=== PATIENT | male | born 1970 | race African-American/Black ===

== ENCOUNTER 2020-10-15 16:57 | Emergency (ER) | payer OTHER ==
[~2020-10-15] VITALS: Ht 188 cm; Wt 84.0 kg
[2020-10-15 18:54] LABS: BASO % 0 % (0-3); EOS % 0 % (0-3); HEMATOCRIT 44.9 % (39.0-53.0); HEMOGLOBIN 14.6 g/dL (13.0-17.5); LYMPH # 0.8 x10^3/uL (1.0-4.8); LYMPH % 10 % (24-48); MEAN CORPUSCULAR HEMOGLOBIN 28 pg (25-35); MEAN CORPUSCULAR HGB CONC 32 g/dL (31-37); MEAN CORPUSCULAR VOLUME 87 fL (79-100); MONO # 0.6 x10^3/uL (0.0-1.1); MONO % 8 % (0-9); NEUT # 6.3 x10^3uL (1.8-7.7); NEUT % 82 % (31-73); PLATELET COUNT 357 x10^3/uL (140-400); RED BLOOD COUNT 5.14 x10^6/uL (4.30-5.70); RED CELL DISTRIBUTION WIDTH 13.6 % (11.5-14.5); WHITE BLOOD COUNT 7.6 x10^3/uL (4.0-11.0)
[2020-10-15 18:57] LABS: CALCIUM 10.3 mg/dL (8.5-10.1); CREATININE 1.3 mg/dL (0.7-1.3); GFR 71.3; POTASSIUM 4.3 mmol/L (3.5-5.1)
[2020-10-15 19:10] LABS: ALBUMIN 4.5 g/dL (3.4-5.0); ALBUMIN/GLOBULIN RATIO 1.1 (1.0-1.7); MAGNESIUM 2.1 mg/dL (1.8-2.4); TOTAL BILIRUBIN 0.7 mg/dL (0.2-1.0); TOTAL PROTEIN 8.6 g/dL (6.4-8.2)
--- NOTE | 2020-10-15 19:20 | RAD ---
XR CHEST 1V Clinical History: Reason: tachycardia / Spl. Instructions: / History: Technique: AP view of the chest was obtained at 10/15/2020 6:49 PM. Comparison: None. Findings: The cardiomediastinal silhouette is normal. The pulmonary vasculature is normal. The lungs and pleura l margins are clear. Impression: No evidence of an acute cardiopulmonary process. Electronically signed by: Andrei Reardon III, MD (10/15/2020 7:18 PM) [facility] [place]
[2020-10-15] MEDS ORDERED: IV RINGERS SOLUTION,LACTATED 1,000 ML IV ONE (19:45)
--- NOTE | 2020-10-15 20:26 | PHYS DOC ---
Past History Past Medical History: High Cholesterol, Hypertension Alcohol Use: None Adult General Chief Complaint Chief Complaint: DIZZY/LIGHT HEADED HPI HPI Patient is a 50-year-old male with a past medical history significant for hypertension and hypercholesteremia who presents to the emergency department from the long term with a chief complaint of hypertension. States that he was getting his normal blood pressure management/evaluation in the clinic and had a blood pressure of 160/100 and was sent to the emergency department. Denies any headache, change in vision, chest pain, shortness of breath, abdominal pain, nausea, vomiting, dysuria, hematuria or blood in the stool. States he came in because his blood pressure was high. Denies any recent travel, illnesses, fevers, known ill contacts, Covid/flu symptoms. Denies alcohol or drug use. Review of Systems Review of Systems Review of systems otherwise unremarkable except noted in HPI Current Medications Current Medications Current Medications Medications (Trade) Dose Ordered Sig/Donny Start Time Stop Time Status Last Admin Dose Admin Lactated Ringer's 1,000 ml @ 1,000 mls/hr 1X ONCE 10/15/20 19:45 10/15/20 20:44 10/15/20 19:45 1,000 MLS/HR Allergies Allergies Allergies Coded Allergies Type Severity Reaction Last Updated Verified No Known Drug Allergies 10/15/20 No Physical Exam Physical Exam Constitutional: Well developed, well nourished, no acute distress, non-toxic appearance. [] HENT: Normocephalic, atraumatic, bilateral external ears normal, oropharynx mois t, no oral exudates, nose normal. [] Eyes: conjunctiva normal, no discharge. [] Neck: Normal range of motion, no tenderness Cardiovascular: Sinus tachycardia Lungs & Thorax: Bilateral breath sounds clear to auscultation [] Abdomen: soft, no tenderness, no masses, no pulsatile masses. [] Skin: Warm, dry, no erythema, no rash. [] Extremities: No tenderness, no cyanosis, no clubbing, ROM intact, no edema. [] Neurologic: Alert and oriented X 3, normal motor function, normal sensory function, no focal deficits noted. [] Psychologic: Affect normal, judgement normal, mood normal. [] Current Patient Data Vital Signs Vital Signs Date Time Temp Pulse Resp B/P (MAP) Pulse Ox O2 Delivery O2 Flow Rate FiO2 10/15/20 16:57 98.0 159/64 (95) Lab Results Laboratory Tests Test 10/15/20 17:59 White Blood Count 7.6 x10^3/uL (4.0-11.0) Red Blood Count 5.14 x10^6/uL (4.30-5.70) Hemoglobin 14.6 g/dL (13.0-17.5) Hematocrit 44.9 % (39.0-53.0) Mean Corpuscular Volume 87 fL (79-100) Mean Corpuscular Hemoglobin 28 pg (25-35) Mean Corpuscular Hemoglobin Concent 32 g/dL (31-37) Red Cell Distribution Width 13.6 % (11.5-14.5) Platelet Count 357 x10^3/uL (140-400) Neutrophils (%) (Auto) 82 % (31-73) H Lymphocytes (%) (Auto) 10 % (24-48) L Monocytes (%) (Auto) 8 % (0-9) Eosinophils (%) (Auto) 0 % (0-3) Basophils (%) (Auto) 0 % (0-3) Neutrophils # (Auto) 6.3 x10^3uL (1.8-7.7) Lymphocytes # (Auto) 0.8 x10^3/uL (1.0-4.8) L Monocytes # (Auto) 0.6 x10^3/uL (0.0-1.1) Eosinophils # (Auto) 0.0 x10^3/uL (0.0-0.7) Basophils # (Auto) 0.0 x10^3/uL (0.0-0.2) Sodium Level 139 mmol/L (136-145) Potassium Level 4.3 mmol/L (3.5-5.1) Chloride Level 101 mmol/L (98-107) Carbon Dioxide Level 27 mmol/L (21-32) Anion Gap 11 (6-14) Blood Urea Nitrogen 21 mg/dL (8-26) Creatinine 1.3 mg/dL (0.7-1.3) Estimated GFR (Cockcroft-Gault) 71.3 BUN/Creatinine Ratio 16 (6-20) Glucose Level 101 mg/dL (70-99) H Calcium Level 10.3 mg/dL (8.5-10.1) H Magnesium Level 2.1 mg/dL (1.8-2.4) Total Bilirubin 0.7 mg/dL (0.2-1.0) Aspartate Amino Transferase (AST) 45 U/L (15-37) H Alanine Aminotransferase (ALT) 36 U/L (16-63) Alkaline Phosphatase 74 U/L (46-116) Troponin I Quantitative < 0.017 ng/mL (0-0.055) Total Protein 8.6 g/dL (6.4-8.2) H Albumin 4.5 g/dL (3.4-5.0) Albumin/Globulin Ratio 1.1 (1.0-1.7) EKG EKG [] Radiology/Procedures Radiology/Procedures [] Heart Score C/O Chest Pain: No Risk Factors: Risk Factors: DM, Current or recent (<one month) smoker, HTN, HLP, family history of CAD, obesity. Risk Scores: Risk Factors: DM, Current or recent (<one month) smoker, HTN, HLP, family history of CAD, obesity. Course & Med Decision Making Course & Med Decision Making Patient is a 50-year-old male who presents with a chief complaint of hypertension Vital signs notable for hypertension and tachycardia. Physical exam noted above. EKG noted above with sinus tachycardia no STEMI x2. Troponin x2 normal. Patient took 325 aspirin before coming into the emergency department. Patient states otherwise asymptomatic. Laboratory positive for methamphetamine/amphetamine otherwise not concerning. D-dimer not concerning. Chest x-ray normal. After fluid resuscitation and benzodiazepines patient vital signs stabilized. Patient awake alert in no acute distress. Patient still asymptomatic on dewayne ssessment. Discussed all findings with patient and advised cessation of all substances not prescribed. Advised follow-up with primary care physician in long term first thing in the morning to discuss ED visit. Patient able to take p.o. Gave strict return p recautions to the ED. Patient grateful, verbalized understanding and agreed with plan of discharge. [] Dragon Disclaimer Dragon Disclaimer This electronic medical record was generated, in whole or in part, using a voice recognition dictation system. Departure Departure: Impression: Primary Impression: Hypertension Additional Impressions: Tachycardia Amphetamine abuse Disposition: 05 DC/TRF OTHER TYPE INSTITUTI Condition: RELEASED IN CUSTODY Referrals: PCP,NO (PCP) Patient Instructions: Hypertension, Substance Abuse-Brief Additional Instructions: Please read all the attached information. Please do not take any substances that are not prescribed by physician. Please follow-up with with your facility physician as soon as possible to discuss ED visit. Please come back to the ED with new or concerning symptoms as discussed. Problem Qualifiers SUSSY URIBE MD Oct 15, 2020 20:25
[2020-10-15 21:55] LABS: BARBITURATES NEG (NEG); BENZODIAZEPINES NEG (NEG); CANNABINOIDS NEG (NEG); COCAINE NEG (NEG); METHADONE NEG (NEG); OPIATES NEG (NEG); PHENCYCLIDINE NEG (NEG)
[2020-10-15 21:59] LABS: BACTERIA,URINE 0 /HPF (0-FEW); BILIRUBIN,URINE NEG (NEG); CLARITY,URINE CLEAR; COLOR,URINE YELLOW; GLUCOSE,URINE NEG (NEG); NITRITE,URINE NEG (NEG); SQUAMOUS EPITHELIAL CELL,UR MOD /LPF; UROBILINOGEN,URINE 0.2 mg/dL (0.2 mg/dL); WBC,URINE 0 /HPF (0-4)
[2020-10-15 22:00] LABS: AMPHETAMINE/METHAMPHETAMINE POS (NEG)
[2020-10-15] MEDS ORDERED: MIDAZOLAM HCL PF 5 MG/5 ML VIAL. NS ONE ×2 (22:15→22:45)
[2020-10-16 01:00] VITALS: BP 130/88
--- NOTE | 2020-10-16 06:43 | EKG ---
[address] [address] Test Date: 2020-10-15 Test Time: 17:12:09 Pat Name: LINA HEARD Department: Room: Gender: M Electroencephalogram Technologist: ONEIL : 1970 Requested By: SUSSY URIBE Order Number: [id number] Reading MD: Measurements Intervals [place] Rate: 120 P: 49 [place]: 140 QRS: 37 QRSD: 84 T: 38 QT: 304 QTc: 434 Interpretive Statements SINUS TACHYCARDIA OTHERWISE NORMAL ECG RI6.02 No previous ECG available for comparison
== END 2020-10-16 01:47 | disposition short-term general hospital (02) ==
LOC: EEVIPCON 16:57 → ER 16:57
DX: I10 Essential (primary) hypertension (principal); R00.0 Tachycardia, unspecified; F15.10 Other stimulant abuse, uncomplicated; E78.00 Pure hypercholesterolemia, unspecified
CPT/HCPCS: 36415; 71045; 80053; 80307; 81001; 83605; 83735; 84443; 84484; 85025; 85379; 93005; 96360; 96361; 99285; J2250; J7120